=== PATIENT | male | born 1985 | race Two or more races ===

== ENCOUNTER 2020-06-06 01:46 | Emergency (ER) | payer OTHER ==
[~2020-06-06] VITALS: Ht 172.7 cm; Wt 113.6 kg
[2020-06-06 01:49] VITALS: BP 149/91
--- NOTE | 2020-06-06 01:57 | NUR ---
PT AMBULATES FROM LOBBY TO ROOM WITH STEADY GAIT.
[2020-06-06] MEDS ORDERED: LIDOCAINE-MPF 1%, 5ML ONE (02:44)
--- NOTE | 2020-06-06 03:54 | NUR ---
PT D/C WITH D/C SUMMARY AND SCRIPTS. ALL QUESTIONS ANSWERED. PT DENIES ANY OTHER NEEDS PERTAINING TO THIS VISIT. PT VERBALIZES UNDERSTANDING FOR NEED FOR F/U VISIT ON 06/19/20.
== END 2020-06-06 03:57 | disposition home or self-care (01) ==
LOC: ED 02:00
DX: S31.811A Laceration without foreign body of right buttock, initial encounter (principal); K60.0 Acute anal fissure; K62.5 Hemorrhage of anus and rectum; K64.9 Unspecified hemorrhoids; X58.XXXA Exposure to other specified factors, initial encounter; Y93.89 Activity, other specified; Y92.89 Other specified places as the place of occurrence of the external cause; Y99.8 Other external cause status
CPT/HCPCS: 12031; 99284

== ENCOUNTER 2020-06-19 07:00 | Emergency (ER) | payer OTHER ==
[~2020-06-19] VITALS: Ht 172.7 cm; Wt 113.6 kg
[2020-06-19 07:02] VITALS: BP 128/66
--- NOTE | 2020-06-19 07:12 | NUR ---
Pt brought back from triage for suture removal. No other complaints at this time.
--- NOTE | 2020-06-19 07:26 | NUR ---
NAVYA Vega at bedside for evaluation.
== END 2020-06-19 08:12 | disposition home or self-care (01) ==
LOC: ED 07:38
DX: S31.811D Laceration without foreign body of right buttock, subsequent encounter (principal); X58.XXXD Exposure to other specified factors, subsequent encounter
CPT/HCPCS: 99283